=== PATIENT | male | born 1985 | race Caucasian/White ===

== ENCOUNTER 2016-12-28 05:44 | Day surgery (SDC) | payer OTHER ==
[~2016-12-28] VITALS: Ht 182.9 cm; Wt 99.8 kg
[~2016-12-28 05:44] MED LIST: IMITREX25 MG PO; TRAZODONE HCL50 MG PO; VENLAFAXINE HCL75 MG PO
[2016-12-28 06:16] VITALS: BP 118/74
[2016-12-28] MEDS ORDERED: PERCOCET 5/31 TABLET PO (09:24)
[2016-12-28] MEDS ORDERED: COLACE100 MG PO (09:24)
[2016-12-28 11:17] VITALS: BP 101/54
[2016-12-28 12:15] VITALS: BP 98/49
[2016-12-28 14:17] VITALS: BP 97/53
[2016-12-28 16:00] VITALS: BP 108/55
[2016-12-28 17:41] VITALS: BP 117/71
== END 2016-12-28 17:53 | disposition home or self-care (01) ==
LOC: SDC 05:44 → EDSTATUS 13:19 → 2SOUTH 13:19 → SDC 13:21
DX: K40.91 Unilateral inguinal hernia, without obstruction or gangrene, recurrent (principal); D17.6 Benign lipomatous neoplasm of spermatic cord; F43.10 Post-traumatic stress disorder, unspecified; Z83.42 Family history of familial hypercholesterolemia; Z88.0 Allergy status to penicillin; Z88.1 Allergy status to other antibiotic agents
CPT/HCPCS: C1727; C1781; J0330; J1100; J1170; J2250; J2405; J2710; J3010